=== PATIENT | female | born 1965 | race Caucasian/White ===

== ENCOUNTER 2020-01-13 12:20 | Outpatient (CLI) | payer OTHER, SELFPAY ==
--- NOTE | 2020-01-13 12:32 | MM_ITS ---
WS: [id number] SCREENING DIGITAL MAMMOGRAM WITH CAD HISTORY: SCREEN COMPARISON: 10/21/2018 and 09/19/2017 Bilateral CC and MLO views submitted. Computer aided detection analyzed. Breast composition: There are scattered areas of fibroglandular density. No suspicious masses, microc alcifications or architectural distortion. MM/[id number] IMPRESSION: BI-RADS: 1-Negative FOLLOW UP: 1 Year Follow-up
== END 2020-01-13 12:21 | disposition home or self-care (01) ==
LOC: RADSHAW 12:22
PROVIDERS: PCP Family Medicine; Visit Provider Nurse Practitioner Women's Health
DX: Z12.31 Encounter for screening mammogram for malignant neoplasm of breast (principal)
CPT/HCPCS: 77067

== ENCOUNTER 2021-05-24 15:00 | Outpatient (CLI) | payer OTHER, SELFPAY ==
--- NOTE | 2021-05-24 15:30 | MM_ITS ---
WS: [id number] SCREENING DIGITAL MAMMOGRAM WITH CAD HISTORY: Z12.39 - Encounter for other screening for malignant neoplasm COMPARISON: 01/13/2020 and 10/21/2018 Bilateral CC and MLO views submitted. Computer aided detection analyzed. Breast composition: There are scattered areas of fibroglandular density. No suspicious masses, microc alcifications or architectural distortion. MM/[id number] IMPRESSION: BI-RADS: 1-Negative FOLLOW UP: 1 Year Follow-up
== END 2021-05-24 15:01 | disposition home or self-care (01) ==
LOC: RADSHAW 15:05
PROVIDERS: PCP Family Medicine; Visit Provider Nurse Practitioner Women's Health
DX: Z12.31 Encounter for screening mammogram for malignant neoplasm of breast (principal)
CPT/HCPCS: 77067

== ENCOUNTER 2021-08-11 02:14 | Observation (INO) | payer OTHER, SELFPAY ==
[2021-08-11] VITALS (24 sets, daily range): BP systolic 92–128; BP diastolic 40–91; PULSE 60–90; RESP 14–22; TEMP 36.2–37.6; O2SAT 96–100; BMI 22.2
--- NOTE | 2021-08-11 02:24 | ED_ITS ---
Documented by User: BEVERLEY Denis 08/11/21 02:45 HPI - Abdominal Pain General: Chief Complaint: Abdominal Pain Stated Complaint: abd pain Time Seen by Provider: 08/11/21 02:15 History of Present Illness: HPI narrative: Patient is a 55-year-old female comes to the ED with abdominal pain, nausea and vomiting. Past surgical history of a hysterectomy. Denies any other abdominal surgeries. Symptoms started approximately 3 days ago. She describes having more mild generalized abdominal pain 3 days ago and its progressed and gotten more painful. Abdominal pain is diffuse throughout the abdomen and she denies any localized abdominal pain. Heat pad on her abdomen helped at first, but today did not provide any relief. She rates her abdominal pain a 7 out of 10. She has never had abdominal pain like this before. yesterday patient started developing nausea and vomiting and was only able to keep half a bottle of Sprite down and she had no other food or fluids. She has not had a good BM for several days now. She had small amount of liquid stool today. MD elicited complaint: abdominal pain Pertinent past history: constipation Onset (ago): day(s) (3 days ago) Pain Consistency: constant Location: Diffuse (Throughout abdomen) Severity: moderate Pain scale (0-10): 7 Radiation: none Relieving factors: other (Heat pad) Associated Symptoms: Reports constipation, nausea, poor appetite and vomiting; Denies chills, diarrhea, dysuria, fever(s), hematochezia and hematuria Review of Systems Const: Reports: change in appetite (Decreased appetite); Denies: fever(s), chills or fatigue Eyes: Denies: change in vision or eye discomfort ENMT: Denies: throat pain, odynophagia, nasal discharge or nasal congestion Card: Denies: chest pain, palpitations, edema, swelling of feet/ankles, dyspnea on exertion or orthopnea Resp: Denies: dyspnea, productive cough or non-productive cough GI: Reports: abdominal pain, nausea, vomiting and constipation; Denies: diarrhea or hematochezia : Denies: flank pain, dysuria or hematuria Musc: Denies: neck pain, back pain or extremity swelling Skin/Breast: Denies: rash or new lesions Neuro: Denies: headache(s), numbness in extremities or weakness in extremities PFSH ED PFSH: Medical History No pertinent past medical history neghx:htn,dm,thyroid,dvt/pe Postmenopausal Surgical History History of hysterectomy with bilateral oophorectomy (~06/24/12) Hx of tubal ligation (~04/03/03) Status post hysteroscopy (09/18/11) D&C and Polypectomy- Endometrial polyp with multiple submucosal fibroids. Procedure performed by Dr. Eyad Roque at [facility] in [place], [place] Family History Grandmother Breast cancer Paternal-- dx age 80's Mother Hypertension Father Hypertension Grandfather Stroke Paternal Denies family history of Colon cancer Ovarian cancer Diabetes Heart disease Hypercholesteremia Bleeding disorder Uterine cancer Thyroid disease Physical Exam Const: COMMON NORMALS: no acute distress, patient oriented x3, healthy appearing and alert GENERAL APPEARANCE: cooperative and comfortable HENMT: COMMON NORMALS: normocephalic HEAD & SCALP: normocephalic MOUTH: moist mucous membranes abnormal Details: parched THROAT: posterior oropharynx normal and uvula midline Eye: COMMON NORMALS: Equal, round and reactive pupils present PUPIL: Yes Equal, round and reactive pupils present Neck/C-Spine: COMMON NORMALS: supple GENERAL: Yes normal visual inspection Resp: COMMON NORMALS: normal respiratory effort, No retractions, No use of accessory muscles and clear to auscultation bilaterally AUSCULTATION: clear to auscultation bilaterally Cardio: COMMON NORMALS: regular rate, regular rhythm, S1 normal heart sound present, S2 normal heart sound present, No gallops present (Cardio), No clicks present (Cardio), No murmurs present (Cardio) and Peripheral pulses 2+ throughout RATE: regular rate RHYTHM: regular rhythm HEART SOUNDS: S1 normal heart sound present and S2 normal heart sound present PERIPHERAL PULSES: Peripheral pulses 2+ throughout GI: COMMON NORMALS: Normal to inspection, nondistended, normoactive bowel sounds present, Soft to palpation and no masses PALPATION: Yes Soft to palpation and Yes Tenderness to palpation present (GI) (Generalized tenderness throughout all 4 quadrants-no localized tenderness) Details: LLQ, RLQ, LUQ and RUQ : COMMON NORMALS: Yes no CVA tenderness BLADDER/KIDNEY EXAM: Yes no CVA tenderness Back/Pelvis: COMMON NORMALS: no CVA tenderness Extremity: COMMON NORMALS: normal to inspection and no pedal edema Neuro: COMMON NORMALS: patient oriented x3 SENSORIUM/ORIENTATION: Yes alert GAIT: Yes Normal gait present Skin: GENERAL SKIN EXAM: dry skin Course ED course: I performed the initial history physical exam, ordered labs and imaging on patient. I then transferred care over to Dr. Delgado at the end of my shift at [address] Delgado will be taking over management of patient and discharge. Uvaldo Shields PA-C Vital Signs: Vital signs: Vital Signs Temperature 97.9 F 08/11/21 02:17 Pulse Rate 90 08/11/21 02:17 Respiratory Rate 18 08/11/21 02:58 Blood Pressure 128/77 08/11/21 02:17 Pulse Oximetry 100 08/11/21 02:17 MDM - Abdominal Pain Lab Data: Labs: Lab Results 08/11/21 08/11/21 02:50 02:50 WBC 16.9 10^3/uL H 10 ^3/uL (4.0-10.0) RBC 4.30 10^6/uL 10^6 /uL (4.1-5.3) Hgb 11.3 g/dL L g/dL (11.5-15.3) Hct 35.6 % L % (37.0-47.0) MCV 82.8 fl fl (81-99) MCH 26.3 pg L pg (28.0-34.0) MCHC 31.7 g/dL g/dL (30.0-36.0) RDW 13.2 % % (12.1-15.1) Plt Count 301 10^3/cmm 10^3 /cmm (130-400) MPV 10.9 fL H fL (7.4-10.4) Neut % (Auto) 87.2 % % Lymph % (Auto) 6.4 % % [place] % (Auto) 5.8 % % Eos % (Auto) 0.0 % % Baso % (Auto) 0.3 % % Neut # (Auto) 14.76 10^3/uL H 1 0^3/uL (1.8-7.7) Lymph # (Auto) 1.1 10^3/uL 10^3/ uL (0.8-4.8) [place] # (Auto) 1.0 10^3/uL H 10^ 3/uL (0.2-0.9) Eos # (Auto) 0.0 10^3/uL 10^3/ uL (0.0-0.8) Baso # (Auto) 0.1 10^3/uL 10^3/ uL (0.0-0.1) Nucleated RBC % (a uto) 0 % % Nucleated RBCs # 0.0 /100WBC /100W BC Sodium 139 mmol/L mmol/L (136-145) Potassium 3.7 mmol/L mmol/L (3.5-5.1) Chloride 103 mmol/L mmol/L (98-107) Carbon Dioxide 20 mmol/L L mmol/ L (22-29) Anion Gap 19.7 H (5-19) BUN 11 mg/dL mg/dL (6-20) Creatinine 0.5 mg/dL mg/dL (0.5-0.9) GFR Calculation 127.6 mL/min mL/m in (90-130) Glucose 117 mg/dL H mg/dL (65-115) Calculated Osmolal ity 288 mOsm/kg mOsm/ kg (285-295) Calcium 8.5 mg/dL mg/dL (8.5-10.5) Total Bilirubin 0.5 mg/dL mg/dL (0.15-1.2) AST 11 U/L U/L (0-32) ALT 6 U/L U/L (0-33) Alkaline Phosphata se 44 IU/L IU/L (35-105) Total Protein 7.5 g/dL g/dL (6.6-8.7) Albumin 4.1 g/dL g/dL (3.5-5.2) Globulin 3.4 g/dL g/dL (1.3-4.6) Lipase 33 U/L U/L (13-60) Discharge Plan Discharge Patient Disposition: Admitted As Inpatient Clinical Impression: Acute appendicitis Qualifiers: Acute appendicitis type: unspecified acute appendicitis type Qualified Code(s): K35.80 - Unspecified acute appendicitis Condition: Stable Coding Level of Care Code ED Rn Case Manager for [facility] Fwd Exam Comprehensive Documented by User: Destiny Delgado MD 08/11/21 04:05 HPI - Abdominal Pain General: Chief Complaint: Abdominal Pain Stated Complaint: abd pain Time Seen by Provider: 08/11/21 02:15 PFSH ED PFSH: Medical History No pertinent past medical history neghx:htn,dm,thyroid,dvt/pe Postmenopausal Surgical History History of hysterectomy with bilateral oophorectomy (~06/24/12) Hx of tubal ligation (~04/03/03) Status post hysteroscopy (09/18/11) D&C and Polypectomy- Endometrial polyp with multiple submucosal fibroids. Procedure performed by Dr. Eyad Roque at [facility] in [place], [place] Family History Grandmother Breast cancer Paternal-- dx age 80's Mother Hypertension Father Hypertension Grandfather Stroke Paternal Denies family history of Colon cancer Ovarian cancer Diabetes Heart disease Hypercholesteremia Bleeding disorder Uterine cancer Thyroid disease Course Vital Signs: Vital signs: Vital Signs Temperature 97.9 F 08/11/21 02:17 Pulse Rate 90 08/11/21 02:17 Respiratory Rate 18 08/11/21 02:58 Blood Pressure 128/77 08/11/21 02:17 Pulse Oximetry 100 08/11/21 02:17 MDM - Abdominal Pain MDM Narrative: Medical decision making narrative: Patient presents here with abdominal pain CT shows appendicitis will start patient on IV antibiotics I spoke to surgeon on-call will admit at this time. Lab Data: Labs: Lab Results 08/11/21 08/11/21 02:50 02:50 WBC 16.9 10^3/uL H 10 ^3/uL (4.0-10.0) RBC 4.30 10^6/uL 10^6 /uL (4.1-5.3) Hgb 11.3 g/dL L g/dL (11.5-15.3) Hct 35.6 % L % (37.0-47.0) MCV 82.8 fl fl (81-99) MCH 26.3 pg L pg (28.0-34.0) MCHC 31.7 g/dL g/dL (30.0-36.0) RDW 13.2 % % (12.1-15.1) Plt Count 301 10^3/cmm 10^3 /cmm (130-400) MPV 10.9 fL H fL (7.4-10.4) Neut % (Auto) 87.2 % % Lymph % (Auto) 6.4 % % [place] % (Auto) 5.8 % % Eos % (Auto) 0.0 % % Baso % (Auto) 0.3 % % Neut # (Auto) 14.76 10^3/uL H 1 0^3/uL (1.8-7.7) Lymph # (Auto) 1.1 10^3/uL 10^3/ uL (0.8-4.8) [place] # (Auto) 1.0 10^3/uL H 10^ 3/uL (0.2-0.9) Eos # (Auto) 0.0 10^3/uL 10^3/ uL (0.0-0.8) Baso # (Auto) 0.1 10^3/uL 10^3/ uL (0.0-0.1) Nucleated RBC % (a uto) 0 % % Nucleated RBCs # 0.0 /100WBC /100W BC Sodium 139 mmol/L mmol/L (136-145) Potassium 3.7 mmol/L mmol/L (3.5-5.1) Chloride 103 mmol/L mmol/L (98-107) Carbon Dioxide 20 mmol/L L mmol/ L (22-29) Anion Gap 19.7 H (5-19) BUN 11 mg/dL mg/dL (6-20) Creatinine 0.5 mg/dL mg/dL (0.5-0.9) GFR Calculation 127.6 mL/min mL/m in (90-130) Glucose 117 mg/dL H mg/dL (65-115) Calculated Osmolal ity 288 mOsm/kg mOsm/ kg (285-295) Calcium 8.5 mg/dL mg/dL (8.5-10.5) Total Bilirubin 0.5 mg/dL mg/dL (0.15-1.2) AST 11 U/L U/L (0-32) ALT 6 U/L U/L (0-33) Alkaline Phosphata se 44 IU/L IU/L (35-105) Total Protein 7.5 g/dL g/dL (6.6-8.7) Albumin 4.1 g/dL g/dL (3.5-5.2) Globulin 3.4 g/dL g/dL (1.3-4.6) Lipase 33 U/L U/L (13-60) Imaging Data ^: CT Abd/Pel: Radiologist's impression: [address] [address] [address] Scan Report Signed with Addenda Patient: Sylvie Meadows Unit #: [id number] : 1965 Age/Sex: 55 / F ADM Date: 08/11/21 Loc: ER Room/Bed: Attending Dr: Ordering Provider/Ordering MD: Uvaldo Shields Date of Service: 08/11/21 Procedure(s): CT abdomen pelvis w con* [id number] Accession Number(s): [id number] Report Number: [id number]/CT abdomen pelvis w con* [id number] CRITICAL RESULT: THIS REPORT CONTAINS FINDINGS THAT MAY BE CRITICAL TO PATIENT CARE. The findings were verbally communicated via telephone conference with Dr. Delgado at 3:46 AM RADIO CONTROL CRANE OPERATOR on 08/11/2021. The findings were acknowledged and understood. Addendum Dictated By: Long Feng MD Addendum Signed By: Long Feng MD Signed Date/Time: 08/11/21 0348 Addendum Cosigned By: PROCEDURE INFORMATION: Exam: CT Abdomen And Pelvis With Contrast Exam date and time: 08/11/2021 2:23 AM Age: 55 years old Clinical indication: Nausea and vomiting; Abdominal pain; Localized; Prior surgery; Surgery type: Hysterectomy; Patient HX: Worsening lower abd pain with n/v x 2 days. ; Additional info: Generalized abdominal pain, n/v TECHNIQUE: Imaging protocol: Computed tomography of the abdomen and pelvis with contrast. Radiation optimization: All CT scans at this facility use at least one of these dose optimization techniques: automated exposure control; mA and/or kV adjustment per patient size (includes targeted exams where dose is matched to clinical indication); or iterative reconstruction. Contrast material: OMNI 300; Contrast volume: 95 ml; Contrast route: INTRAVENOUS (IV); COMPARISON: No relevant prior studies available. RADIATION DOSE METRICS: Total DLP (mGy-cm): 1269.42 FINDINGS: Liver: Normal. No mass. Gallbladder and bile ducts: Normal. No calcified stones. No ductal dilation. Pancreas: Normal. No ductal dilation. Spleen: Normal. No splenomegaly. Adrenal glands: Normal. No mass. Kidneys and ureters: Normal. No hydronephrosis. Stomach and bowel: There is mild enhancement of the terminal ileum likely representing a mild reactive ileitis. Appendix: The appendix is abnormally dilated to 17 mm. There are diffuse hazy and strandy opacity seen in the adjacent mesentery, findings compatible with some inflammatory changes and appendicitis. Intraperitoneal space: See Appendix finding. Vasculature: Unremarkable. No abdominal aortic aneurysm. Lymph nodes: Unremarkable. No enlarged lymph nodes. Urinary bladder: Unremarkable as visualized. Reproductive: Status post hysterectomy. Bones/joints: Unremarkable. No acute fracture. Soft tissues: Unremarkable. Other findings: A small volume of fluid is seen within the dependent portion of pelvis. CT/CT abdomen pelvis w con* [id number] IMPRESSION: 1. Abnormally dilated appendix measuring up to 17 mm with adjacent strandy and hazy opacities present, findings compatible with acute appendicitis. 2. Mild enhancement of the terminal ileum likely represents mild reactive ileitis. 3. Small volume of low-attenuation fluid seen in the dependent portion of the pelvis. Dictated By: Long Feng MD Signed By: Long Feng MD Signed Date/Time: 08/11/21 0345 DD/ 2 Discharge Plan Discharge Patient Disposition: Admitted As Inpatient Clinical Impression: Acute appendicitis Qualifiers: Acute appendicitis type: unspecified acute appendicitis type Qualified Code(s): K35.80 - Unspecified acute appendicitis Condition: Stable Coding Level of Care Code ED Rn Case Manager for [facility] Fwd Exam Comprehensive
[2021-08-11] MEDS: sodium chloride 0.9% 1,000 ML 999 ML IV (02:58)
[2021-08-11] MEDS: morphine 4 mg/mL SDV 1 mL IVP (02:58)
[2021-08-11] MEDS: ondansetron 2 mg/ML SDV 2 mL 4 MG IVP ×2 (02:58→11:53)
[2021-08-11] MEDS: iohexol 300 mg/mL 100 mL Btl IV (03:08)
[2021-08-11 03:10] LABS: Basophils # 0.1 10^3/uL (0.0-0.1); Basophils % 0.3 %; Hematocrit 35.6 % (37.0-47.0); Hemoglobin 11.3 g/dL (11.5-15.3); Lymphocytes # 1.1 10^3/uL (0.8-4.8); Lymphocytes % 6.4 %; Mean Corpuscular HGB Conc 31.7 g/dL (30.0-36.0); Mean Corpuscular Hemoglobin 26.3 pg (28.0-34.0); Mean Corpuscular Volume 82.8 fl (81-99); Mean Platelet Volume 10.9 fL (7.4-10.4); Monocytes % 5.8 %; Neutrophils # 14.76 10^3/uL (1.8-7.7); Neutrophils % 87.2 %; Nucleated Red Blood Cells % 0 %; Platelet Count 301 10^3/cmm (130-400); Red Cell Distribution Width 13.2 % (12.1-15.1); White Blood Count 16.9 10^3/uL (4.0-10.0)
[2021-08-11 03:34] LABS: Alanine Aminotransferase 6 U/L (0-33); Albumin Level 4.1 g/dL (3.5-5.2); Alkaline Phosphatase 44 IU/L (35-105); Anion Gap 19.7 (5-19); Aspartate Amino Transferase 11 U/L (0-32); Blood Urea Nitrogen 11 mg/dL (6-20); Calcium 8.5 mg/dL (8.5-10.5); Carbon Dioxide 20 mmol/L (22-29); Chloride 103 mmol/L (98-107); Globulin 3.4 g/dL (1.3-4.6); Glomerular Filtration Rate 127.6 mL/min (90-130); Glucose 117 mg/dL (65-115); Lipase 33 U/L (13-60); Osmolality Calculated 288 mOsm/kg (285-295); Potassium 3.7 mmol/L (3.5-5.1); Sodium 139 mmol/L (136-145); Total Bilirubin 0.5 mg/dL (0.15-1.2); Total Protein 7.5 g/dL (6.6-8.7)
[2021-08-11] MEDS: HYDROmorphone 1 mg/mL INJ 1 mL IVP (04:33)
[2021-08-11] MEDS: piperacillin-tazobactam 3.375 GM in sodium chloride 0.9% (plus) 50 ML IV (04:47)
--- NOTE | 2021-08-11 05:42 | PC.NURSE ---
Surgical staff here to take pt to surgey.
--- NOTE | 2021-08-11 06:40 | ANES.PREANE2 ---
Pre-Anesthetic Assessment Pre-Anesthetic Assessment: Height/Weight: Height 1.68 m Weight 62.596 kg Temp Pulse Resp BP Pulse Ox 98.6 F 78 16 111/53 100 08/11/21 04:54 08/11/21 04:54 08/11/21 04:54 08/11/21 04:54 08/11/21 04:54 Preop Diagnosis: Appendicitis Proposed Procedure: Operation Date: 08/11/21 07:20 Proposed Procedures p Laparoscopic Appendectomy(Not Applicable) - Rohith Hernandez DO Familial anesthetic complications: None Was Beta Khalif taken within 24 hours: N/A Was Clonidine taken within 24 hours: N/A Last intake: Intake Last Liquid Date 08/10/21 Last Liquid Time 19:00 Last Solid Date 08/09/21 Last Solid Time 05:37 Social: Social History: No alcohol and No tobacco Exam: Pre-Anes Outpt Exam: alert, oriented x 3, clear to auscultation bilaterally and regular rate & rhythm Airway: Cervical ROM: WNL MP: 2 Dentition: Full Anesthetic Plan: ASA status: 1 Anesthesia: General Risk of > 500 ml blood loss (7ml/kg in children): No PFSH Anesthesia PFSH: Medical History No pertinent past medical history neghx:htn,dm,thyroid,dvt/pe Postmenopausal Surgical History History of hysterectomy with bilateral oophorectomy (~06/24/12) Hx of tubal ligation (~04/03/03) Status post hysteroscopy (09/18/11) D&C and Polypectomy- Endometrial polyp with multiple submucosal fibroids. Procedure performed by Dr. Eyad Roque at [facility] in [place], [place] Family History Grandmother Breast cancer Paternal-- dx age 80's Mother Hypertension Father Hypertension Grandfather Stroke Paternal Denies family history of Colon cancer Ovarian cancer Diabetes Heart disease Hypercholesteremia Bleeding disorder Uterine cancer Thyroid disease Data Anesthesia CBC & Chem 7: 08/11/21 02:50 08/11/21 02:50 Other Labs: Laboratory Results - last 48 hr 08/11/21 08/11/21 02:50 02:50 WBC 16.9 H RBC 4.30 Hgb 11.3 L Hct 35.6 L MCV 82.8 MCH 26.3 L MCHC 31.7 RDW 13.2 Plt Count 301 MPV 10.9 H Neut % (Auto) 87.2 Lymph % (Auto) 6.4 Bailey % (Auto) 5.8 Eos % (Auto) 0.0 Baso % (Auto) 0.3 Neut # (Auto) 14.76 H Lymph # (Auto) 1.1 Bailey # (Auto) 1.0 H Eos # (Auto) 0.0 Baso # (Auto) 0.1 Nucleated RBC % (auto) 0 Nucleated RBCs # 0.0 Sodium 139 Potassium 3.7 Chloride 103 Carbon Dioxide 20 L Anion Gap 19.7 H BUN 11 Creatinine 0.5 GFR Calculation 127.6 Glucose 117 H Calculated Osmolality 288 Calcium 8.5 Total Bilirubin 0.5 AST 11 ALT 6 Alkaline Phosphatase 44 Total Protein 7.5 Albumin 4.1 Globulin 3.4 Lipase 33 Cardiac Studies: No Data to Display
--- NOTE | 2021-08-11 07:04 | P.HP_ITS ---
Providers/Chief Complaint Admitting Physician: Rohith Hernandez DO Primary Care Provider: Uvaldo Baldwin MD Chief Complaint: abd pain History of Present Illness Sylvie Meadows is a 55 year old female who presented to the hospital with a 2 day history of abdominal pain. She reports that two days ago she began having abdominal pain the localized to the RLQ and radiates to her back. The pain is sharp and constant. Palpation makes the pain worse. Narcotics make the pain bett er. She did have some nausea and emesis. She has not had a BM since the pain started. She reports chills but no fever. Review of Systems General: Reports: 10 or more systems reviewed and unremarkable except in HPI and below Medications/Allergies Home Medications Medication Instructions Recorded Confirmed Last Taken Type estradiol 0.5 mg tablet 0.5 mg PO DAILY #90 tab 05/16/21 05/16/21 Unknown Rx Allergies Allergy/AdvReac Type Severity Reaction Status Date / Time No Known Allergies Allergy Verified 05/16/21 15:26 PFSH Acute PFSH: Medical History No pertinent past medical history neghx:htn,dm,thyroid,dvt/pe Postmenopausal Surgical History History of hysterectomy with bilateral oophorectomy (~06/24/12) Hx of tubal ligation (~04/03/03) Status post hysteroscopy (09/18/11) D&C and Polypectomy- Endometrial polyp with multiple submucosal fibroids. Procedure performed by Dr. Eyad Roque at [facility] in [place], [place] Family History Grandmother Breast cancer Paternal-- dx age 80's Mother Hypertension Father Hypertension Grandfather Stroke Paternal Denies family history of Colon cancer Ovarian cancer Diabetes Heart disease Hypercholesteremia Bleeding disorder Uterine cancer Thyroid disease Social History (Updated 08/11/21 @ 07:09 by Rohith Hernandez DO) Smoking and tobacco status: never smoked Alcohol intake: current Alcohol intake frequency: holidays/special occasions only Substance/Drug Use: never Vitals/I&O/Wt Last Vital Signs Temp 98.3 F 08/11/21 05:55 Pulse 82 08/11/21 05:55 Resp 18 08/11/21 05:55 BP 115/49 08/11/21 05:55 Pulse Ox 98 08/11/21 05:55 Weight last 48 hrs Weight 138 lb Physical Exam Const: COMMON NORMALS: no acute distress, average body habitus and patient oriented x3 HENMT: COMMON NORMALS: normocephalic HEAD & SCALP: normal to inspection Eye: COMMON NORMALS: Equal, round and reactive pupils present and EOMs intact bilaterally Chest: COMMONS NORMALS: normal inspection of the chest and normal palpation of entire chest wall Resp: COMMON NORMALS: normal respiratory effort and No use of accessory muscles Cardio: COMMON NORMALS: no JVD, regular rate and regular rhythm GI: COMMON NORMALS: Soft to palpation; negative for non-tender (tender to palpation in RLQ. No guarding/rebound/masses) Extremity: COMMON NORMALS: normal to inspection and full ROM Neuro: COMMON NORMALS: patient oriented x3 and no sensory deficits noted Psych: COMMON NORMALS: mental status grossly normal, cooperative, normal affect and speech normal Data : 08/11/21 02:50 08/11/21 02:50 A&P Assessment and plan (1) Acute appendicitis: Abx Pain control To OR for laparoscopic appendectomy, possible open The risks and benefits of the procedure, including but not limited to bleeding, infection, damage to surrounding structures, conversion to an open procedure, scar, numbness, pain, were explained to the patient. She is understanding of the risks and wishes to proceed. Status: Acute Qualifiers: Acute appendicitis type: unspecified acute appendicitis type Qualified Code(s): K35.80 - Unspecified acute appendicitis Attestations Medical Necessity Statement*: Patient requires appendectomy Coding Level of Care Code Acute Heel Buffer for [facility] Diagnoses Acute appendicitis K35.80 Acute appendicitis type: unspecified acute appendicitis type
[2021-08-11] MEDS: HYDROmorphone 1 mg/mL INJ 1 mL 0.5 MG IVP ×2 (08:04→11:35)
--- NOTE | 2021-08-11 09:01 | SUR.PHASEI ---
0710 PT CARE ASSUMED BY Radha GONSALEZ RN, PT TO OPS 10 PT AWAKE ALERT STATES COMFORTABLE, CASE TO BE MOVED BACK TO 11 AM, PT WITH CELL PHONE IN HAND, CONTINOUS O2 SAT PT ON RA
--- NOTE | 2021-08-11 11:25 | PM.OP ---
Operative Report Date of procedure: August 11, 2021 Pre-op Diagnosis: Appendicitis Post-op diagnosis: same Procedure Done: Laparoscopic appendectomy Specimens removed/disposition: appendix Surgeon: Rohith Hernandez Anesthesia: General Estimated blood loss (mL): 5 Complications: none apparent Findings: acute appendicitis Condition: stable Disposition: other (home) Brief History: This very pleasant 55-year-old female presented with acute appendicitis. Laparoscopic appendectomy was indicated. The risks and benefits of procedure, including gone to, bleeding, scar, numbness, infection, damage surrounding structures, conversion to an open procedure, were explained to the patient. She is understanding of the risks and wished to proceed. Procedure: Patient was wheeled into the operative room and placed on the OR table in a supine position. Abdomen was inspected prepped and draped in usual sterile fashion. Time-out was performed and all present were in agreement. A 15 blade scalp was used to make a stab incision in the left upper quadrant and intra-abdominal insufflation was achieved using a Veress needle. After localizing the tissue incisions were made and a 12 millimeter trocar was placed into the umbilicus as well as 1 in the right lower quadrant and 1 in the left lower quadrant . The appendix was identified and was inflamed but not perforated. I used the Ligasure to ligate the mesoappendix at the base. I then used 2 PDS endo-loops to snare the base of the appendix. I then used the Ligasure to ligate the appendix distally. The appendix was removed from the abdomen using an Endo-Catch bag through the umbilical incision. I examined the abdomen with laparoscopic up and no further pathology was identified. Hemostasis was noted. I then closed the umbilical site with a Tobin-Silvino and 0 Vicryl suture in a figure of 8 fashion. All ports removed. Skin was washed and dried. Incisions were closed with 4 O Vicryl in a subcuticular interrupted fashion. Skin glue was applied. Patient tolerated the procedure well.
--- NOTE | 2021-08-11 11:34 | P.PCN_ITS ---
PACU note PACU note: VSS, Good respiratory effort, report to ASH HANDLER Post-Anesthesia Exam: awake
--- NOTE | 2021-08-11 11:34 | PM.PACU ---
PACU note PACU note: VSS, Good respiratory effort, report to PRODUCTS MECHANICAL DESIGN ENGINEER Post-Anesthesia Exam: awake
--- NOTE | 2021-08-11 11:43 | PC.CHAP ---
Pastoral Care Encounter/Spiritual Assessment Type of Contact [] Declined cook fish and chips visit [] Patient/Family/Request visit [] Outpatient visit [] Follow-up visit [] Physician referral [] Code/Alert [xx] Routine visit [] Staff referral [] Actively dying [] Patient sleeping [xx] Family support [] [] Out of room [] Palliative care [] [] Receiving care in room [xx] Pre-surgical visit [] Trauma [] Long length of stay [] ICU visit [] Other: Relational/Emotional Strength [xx] Patient feels connected with others/family/visitors/staff [] Distress [] Loneliness/isolation [] Abandonment Spirituality of Patient [xx] Person of Kim [] Attends Religion of their Kim [xx] Believes in Prayer [xx] Reads Bible or Yarsani materials [] There are Spiritual issues to be addressed Hotbed Operator Interventions [xx] Prayer [xx] Active listening [xx] Non-anxious presence [] Spiritual/emotional support [] Crisis/trauma care [] Spiritual counseling [] Bereavement support [] Provided bereavement packet [xx] Provided Bible/devotional materials [] Provided toy/stuffed animal, coloring book to patient or family member [] Provided Communion [] Anointing/[place] [] Salvation [xx] Completed spiritual assessment [] Other: Impact on Illness or Injury [] Angry [] Fearful [] Anxious [] Often cries [] Exhaustion [] Unable to work [] Unable to attend jew [] Unable to walk/stand [] Unable to read [] Unable to drive [] Unable to eat/drink [] Unable to sleep [] Unable to be with family [] Patient intubated [] Other: Summary Patient had been taken to emergency surgery. was in room waiting for her return. We talked and I prayed for patient and spouse. Spouse hoping she will be discharged Rona morning and can spend part of Rona day with whole family. Time spent with patient 5 minutes
--- NOTE | 2021-08-11 12:00 | SUR.PHASEI ---
PT STATES PAIN IS MUCH BETTER 4 SITES TO ABD D/I ABD SOFT VSS. IV PATENT, SEE EARLIER MEDS GIVEN PT STATES NAUSEA IS BETTER WELL SEE MED GIVEN.
[2021-08-11] MEDS: oxyCODONE-APAP 5-325 mg Tablet 1 TAB PO (13:10)
--- NOTE | 2021-08-11 13:19 | PM.DCS ---
Discharge Providers Date of Admission: 08/11/21 03:55 Date of Discharge: August 11, 2021 Attending Provider at Admission: Rohith Hernandez DO Attending Provider at Discharge: Rohith Hernandez DO Primary Care Provider: Uvaldo Baldwin MD Diagnoses at Discharge Discharge Diagnosis (1) Acute appendicitis: Status: Acute Qualifiers: Acute appendicitis type: unspecified acute appendicitis type Qualified Code(s): K35.80 - Unspecified acute appendicitis Reason for Visit Reason for Visit: abd pain Hospital Course Hospital Course 55 year old female patient presented with acute appendicitis. She underwent an uneventful laparoscopic appendectomy on 08/11/2021 and was discharged home postoperatively. Physical Exam Const: COMMON NORMALS: no acute distress and average body habitus Chest: COMMONS NORMALS: normal inspection of the chest and normal palpation of entire chest wall Resp: COMMON NORMALS: normal respiratory effort and No retractions Cardio: COMMON NORMALS: regular rate and regular rhythm RATE: regular rate RHYTHM: regular rhythm GI: OTHER: S, ND, appropriately tender, no g/r/m. Incisions intact Discharge Data Data Completed and Pending: Completed Studies During Hospitalization Category Date Time Status CT abdomen pelvis w con* [id number] Urge nt Cat Scan 08/11/21 02:23 Completed Pending at discharge Category Date Time Status ES surgery / GI i mages Routine Exams 08/11/21 06:41 Taken Urinalysis Stat Lab 08/11/21 02:16 Uncollected Pathology: Surgic al [PTH] Routine Pth 08/11/21 11:31 Ordered Labs from last 24 hours 08/11/21 08/11/21 02:50 02:50 WBC 16.9 H RBC 4.30 Hgb 11.3 L Hct 35.6 L MCV 82.8 MCH 26.3 L MCHC 31.7 RDW 13.2 Plt Count 301 MPV 10.9 H Neut % (Auto) 87.2 Lymph % (Auto) 6.4 [place] % (Auto) 5.8 Eos % (Auto) 0.0 Baso % (Auto) 0.3 Neut # (Auto) 14.76 H Lymph # (Auto) 1.1 [place] # (Auto) 1.0 H Eos # (Auto) 0.0 Baso # (Auto) 0.1 Nucleated RBC % (a uto) 0 Nucleated RBCs # 0.0 Sodium 139 Potassium 3.7 Chloride 103 Carbon Dioxide 20 L Anion Gap 19.7 H BUN 11 Creatinine 0.5 GFR Calculation 127.6 Glucose 117 H Calculated Osmolal ity 288 Calcium 8.5 Total Bilirubin 0.5 AST 11 ALT 6 Alkaline Phosphata se 44 Total Protein 7.5 Albumin 4.1 Globulin 3.4 Lipase 33 Vitals: Last Vital Signs Temp 98.7 F 08/11/21 11:55 Pulse 78 08/11/21 11:55 Resp 18 08/11/21 13:10 BP 108/49 08/11/21 11:55 Pulse Ox 100 08/11/21 11:55 Discharge Plan Discharge Patient Disposition: Home Condition: Stable Prescriptions: New Augmentin 875-125 mg tablet 1 tab PO Q12H 7 Days Qty: 14 RF: 0 hydrocodone-acetaminophen 7.5-325 mg tablet 1 tab PO Q8H Qty: 20 RF: 0 Continued estradiol 0.5 mg tablet 0.5 mg PO DAILY Qty: 90 RF: 3 Discharge Orders: Discharge Order (Routine); Ordered 08/11/21 Ordered By: Rohith Hernandez Referrals: Uvaldo Baldwin MD [Primary Care Provider] - (PLEASE CALL FOR APPOINTMENT ON SATURDAY FOR FOLLOW UP ON SURGERY [phone]) Discharge Diet: Advance as tolerated Discharge Activity: Resume usual activity Patient Instructions: Hydrocodone/Acetaminophen (By mouth) (Vicodin, [place], Lortab), Amoxicillin/Clavulanate Potassium (By mouth) (Augmentin, Augmentin..., Appendicitis (GEN), Laparoscopic Appendectomy (DC), Opioid Safety Activity Restrictions/Additional Instructions: Shower daily. Do not soak incisions under water for 2 weeks. Follow up with general surgery in 2 weeks. Discharge Attestations Time Spent in Discharge Care*: less than 30 min Quality Metrics Clinical Quality Measures During this hospital stay, did patient experience: None Coding Level of Care Code Acute Chg FW DC note Diagnoses Acute appendicitis K35.80 Acute appendicitis type: unspecified acute appendicitis type
== END 2021-08-11 15:30 | disposition home or self-care (01) ==
LOC: ER 04:01 → MEDSURG 04:17
PROVIDERS: Physician Assistant; Admitting Provider Surgery; Emergency Provider Emergency Medicine; PCP Family Medicine; Visit Provider Surgery
PROC: 0DTJ4ZZ Resection of Appendix, Percutaneous Endoscopic Approach (ICD-10-PCS; CPT 44970; principal; 2021-08-11 07:00)
DX: K35.80 Unspecified acute appendicitis (principal)
CPT/HCPCS: 44970; 74177; 80053; 83690; 85025; 88304; 96365; 96374; 96375; 96376; 99285; G0378; J1100; J1170; J2270; J2405; J2543; J2704; J2710; J3010; J3490; J7030; Q9967

== ENCOUNTER 2021-08-22 09:36 | Outpatient (CLI) | payer OTHER, SELFPAY ==
--- NOTE | 2021-08-22 09:47 | CT_ITS ---
WS: [id number] CT ABDOMEN AND PELVIS WITH CONTRAST HISTORY: Abdominal and RIGHT lower quadrant pain. TECHNIQUE: Imaging performed of the abdomen and pelvis with IV contrast. Single phase imaging of the abdomen. Coronal and sagittal reformats are submitted. All CT scans at [facility] use at rhea st one of these dose optimization techniques: automated exposure control; mA and/or kV adjustment per patient size (includes targeted exams where dose is matched to clinical indication); or iterative re construction. IV CONTRAST: Omnipaque 300; 95 mL IV. Oral contrast: Yes. DLP: 1023.32 mGy.cm COMPARISON: 08/11/2021 Lower thorax: Lung bases are clear. Heart is normal size. No hiatal hernia. Liver/biliary system: Normal size with no intrahepatic dilatation. Gallbladder: Normal. No gallstones or wall thickening. No pericholecystic fluid. Pancreas: Normal size pancreas and pancreatic duct. No adjacent inflammation. Spleen: Normal size spleen. No mass or infarct. Adrenal glands: Normal. Right kidney: Normal. Left kidney: Normal. Aorta: Mild atherosclerosis with no aneurysm. Lymphadenopathy: There are small lymph nodes in the RIGHT lower quadrant along the RIGHT psoas muscle . These are subcentimeter but more than expected in number. Free fluid: None. GI tract: Status post appendectomy. No GI tract obstruction. There is a moderate amount of fecal mate rial throughout the colon. In the RIGHT lower quadrant at the surgical site are very small irregular shaped collections. There are at least 3 collections with the largest measuring 2.4 cm in diameter. T here is adjacent stranding in the soft tissue. These are not well formed may represent developing abs cesses versus fat necrosis/infarction. Abdominal wall: There is an area of soft tissue thickening at the umbilicus with a small postoperativ e collection measuring 1.3 cm. Pelvis: No free fluid or adenopathy within the pelvis. Bones: Unremarkable. CT/CT abdomen pelvis w con* [id number] IMPRESSION: 1. In the RIGHT lower quadrant near the recent appendectomy site there are 3 i ll-defined collections with the largest measuring 2.4 cm. There is no central l iquefaction at this time. The berman are mildly enhancing but incomplete. Favor these are small postoperative phlegmonous collections and concerning for develo ping abscesses. Alternative diagnosis are areas of fat necrosis at the surgical site. Correlate with laboratory values. 2. No free fluid or free air. 3. Recent postsurgical changes along the umbilicus.
[2021-08-22] MEDS: iohexol 300 mg/mL 100 mL Btl IV (11:28)
[2021-08-22] MEDS: iohexol 300 mg/mL 50 mL Btl IV (11:28)
== END 2021-08-22 09:37 | disposition home or self-care (01) ==
PROVIDERS: PCP Family Medicine; Visit Provider Family Medicine
DX: R10.31 Right lower quadrant pain (principal)
CPT/HCPCS: 74177

== ENCOUNTER 2022-02-01 05:28 | Day surgery (SDC) | payer OTHER, SELFPAY ==
[2022-01-30 13:30] VITALS: BMI 22.6
[2022-02-01 06:06] VITALS: BP 100/76; PULSE 95; RESP 16; TEMP 36.3; O2SAT 97
[2022-02-01] MEDS: sodium chloride 0.9% 1,000 ML 30 ML IV (06:15)
--- NOTE | 2022-02-01 06:33 | W.PM.OPSFHP ---
Same Day Surgery H&P Indication for Procedure/HPI DATE OF PROCEDURE: February 01, 2022 CHIEF COMPLAINT/INDICATIONFOR SURGICAL PROCEDURE: Screening colonoscopy PREOP DIAGNOSIS: Screening colonoscopy PLANNED PROCEDURE: Operation Date: 02/01/22 07:00 Proposed Procedures p Colonoscopy 80465/z12.11(Not Applicable) - Darwin Callahan MD This is a pleasant 56 years old female patient comes today for screening colonoscopy. Status post laparoscopic appendectomy on back in July 2021. ROS All systems have been reviewed negative except as for the above or per problem list. Medications/Allergies* Allergies/Adverse Reactions Allergy/AdvReac Type Severity Reaction Status Date / Time No Known Allergies Allergy Verified 02/01/22 06:33 Current Medications: Generic Name Dose Route Start Last Admin Trade Name Freq PRN Reason Stop Dose Admin Sodium Chloride 1,000 mls @ 30 mls/hr 02/01/22 06:00 02/01/22 06:15 Sodium Chloride 0.9% IV 30 mls/hr .Q24H GUILLERMO Administration Pertinent History/Comorbid Conditions* Medical History (Updated 10/11/21 @ 16:21 by Darwin Callahan MD) No pertinent past medical history neghx:htn,dm,thyroid,dvt/pe Postmenopausal Postoperative wound infection Surgical History (Updated 05/13/20 @ 15:50 by Amelia Beard APN, KORTNEY) History of hysterectomy with bilateral oophorectomy (~06/24/12) Hx of tubal ligation (~04/03/03) Status post hysteroscopy (09/18/11) D&C and Polypectomy- Endometrial polyp with multiple submucosal fibroids. Procedure performed by Dr. Eyad Roque at [facility] [place] [facility] in [place], [place] Family History (Updated 05/16/21 @ 15:27 by Eri Warren) Breast cancer Grandmother Paternal-- dx age 80's Hypertension Mother Father Stroke Grandfather Paternal Denies family history of Colon cancer Ovarian cancer Diabetes Heart disease Hypercholesteremia Bleeding disorder Uterine cancer Thyroid disease Social History Smoking and tobacco status: never smoked Alcohol intake: current Alcohol intake frequency: holidays/special occasions only History of recent travel: No Pertinent Exam Findings alert, oriented x 3, regular rate & rhythm and procedure specific exam findings (Abdominal examination nontender nondistended soft) Recommendations Surgery/Procedure today (Screening colonoscopy) Coding Level of Care Code Acute Miter Saw Operator for Chg Fwd
--- NOTE | 2022-02-01 06:49 | ANES.PREANE2 ---
Pre-Anesthetic Assessment Height/Weight: Height 1.68 m Weight 63.503 kg Temp Pulse Resp BP Pulse Ox 97.3 F L 95 16 100/76 97 02/01/22 06:06 02/01/22 06:06 02/01/22 06:06 02/01/22 06:06 02/01/22 06:06 Preop Diagnosis: Screening colonoscopy Operation Date: 02/01/22 07:00 Proposed Procedures p Colonoscopy 76312/z12.11(Not Applicable) - Darwin Callahan MD Was Beta Khalif taken within 24 hours: N/A Was Clonidine taken within 24 hours: N/A Last intake: Intake Last Liquid Date 01/31/22 Last Liquid Time 23:30 Last Solid Date 01/30/22 Last Solid Time 17:30 Last Intake: 23:30 Exam alert and oriented x 3 Airway Submandibular: within normal limits Cervical ROM: within normal limits Mallampati: Class II Dentition: full History/ROS No significant history except as noted Pulmonary None reported CV/HEM None reported None reported Hepatic None reported GI None reported Metabolic None reported Musc/skel None reported Neuropsych None reported Anesthetic Plan ASA status: 1 Anesthesia: MAC Risk of > 500 ml blood loss (7ml/kg in children): No Medications/Allergies Home Medications Medication Instructions Recorded Confirmed Last Taken Type estradiol 0.5 mg tablet 0.5 mg PO DAILY #90 tab 05/16/21 02/01/22 01/31/22 Rx Allergies Allergy/AdvReac Type Severity Reaction Status Date / Time No Known Allergies Allergy Verified 02/01/22 06:33 Current Medications Generic Name Dose Route Start Last Admin Trade Name Freq PRN Reason Stop Dose Admin Sodium Chloride 1,000 mls @ 30 mls/hr 02/01/22 06:00 02/01/22 06:15 Sodium Chloride 0.9% IV 30 mls/hr .Q24H GUILLERMO Administration PFSH Anesthesia Medical History No pertinent past medical history neghx:htn,dm,thyroid,dvt/pe Postmenopausal Postoperative wound infection Surgical History History of hysterectomy with bilateral oophorectomy (~06/24/12) Hx of tubal ligation (~08/16/03) Status post hysteroscopy (09/18/11) D&C and Polypectomy- Endometrial polyp with multiple submucosal fibroids. Procedure performed by Dr. Eyad Roque at [facility] in [place], [place] Family History Grandmother Breast cancer Paternal-- dx age 80's Mother Hypertension Father Hypertension Grandfather Stroke Paternal Denies family history of Colon cancer Ovarian cancer Diabetes Heart disease Hypercholesteremia Bleeding disorder Uterine cancer Thyroid disease Social History Smoking and tobacco status: never smoked Alcohol intake: current Alcohol intake frequency: holidays/special occasions only History of recent travel: No Data Anesthesia Cardiac Studies: No Data to Display
[2022-02-01 07:25] VITALS: BP 85/46; PULSE 69; RESP 16; TEMP 36.2; O2SAT 100
[2022-02-01 07:30] VITALS: BP 87/49; PULSE 76; RESP 18; O2SAT 100
[2022-02-01 07:40] VITALS: BP 84/56; PULSE 70; RESP 18; O2SAT 100
--- NOTE | 2022-02-01 07:44 | PC.NURSE ---
BP 84/56. patent sitting up, drinking fluids, color pink, respirations even and nonlabored. spoke with cranberry sorter and Dr Callahan prior to discharge. instructed to give rest of iv fluids and Dr Callahan will come see her prior to discharge.
[2022-02-01 07:50] VITALS: BP 93/59; PULSE 68; RESP 18; O2SAT 100
--- NOTE | 2022-02-01 07:52 | PC.NURSE ---
Dr Callahan at bedside. BP 93/59. Finish iv fluids and can discharge.
[2022-02-01 07:58] VITALS: BP 98/54; PULSE 63; RESP 18; O2SAT 100
--- NOTE | 2022-02-01 16:28 | ANE.PACU2 ---
Inpatient post-anesthesia follow up: Airway intact: Yes Vital signs: Temperature 97.2 F Pulse Rate 63 Respiratory Rate 18 Blood Pressure 98/54 Pulse Oximetry 100 Oxygen Delivery Me thod Room Air Oxygen Flow Rate Fraction of Inspir ed Oxygen Hydration adequate: Yes Nausea and vomiting: No Pain level: 1 Mental status: Baseline
== END 2022-02-01 08:08 | disposition home or self-care (01) ==
PROVIDERS: PCP Family Medicine; Visit Provider Surgery
PROC: 0DJD8ZZ Inspection of Lower Intestinal Tract, Via Natural or Artificial Opening Endoscopic (ICD-10-PCS; CPT 45378; principal; 2022-02-01 07:00)
DX: Z12.11 Encounter for screening for malignant neoplasm of colon (principal); Q27.30 Arteriovenous malformation, site unspecified
CPT/HCPCS: 45380; 88305; 88342; J2704; J7030

== ENCOUNTER 2022-06-29 09:41 | Outpatient (CLI) | payer OTHER, SELFPAY ==
--- NOTE | 2022-06-29 09:48 | MM_ITS ---
WS: [id number] BILATERAL SCREENING DIGITAL TOMOSYNTHESIS MAMMOGRAM WITH CAD HISTORY: SCREENING COMPARISON: 05/24/2021 and 01/13/2020 Bilateral CC and MLO views with tomosynthesis and synthetic mammography submitted. Computer aided det ection analyzed. Breast composition: There are scattered areas of fibroglandular density. No suspicious masses, microc alcifications or architectural distortion. MM/[place] [id number] IMPRESSION: BI-RADS: 1-Negative FOLLOW UP: 1 Year Follow-up
== END 2022-06-29 09:42 | disposition home or self-care (01) ==
LOC: RAD 09:42
PROVIDERS: PCP Family Medicine; Visit Provider Family Medicine
DX: Z12.31 Encounter for screening mammogram for malignant neoplasm of breast (principal)
CPT/HCPCS: 77063; 77067

== ENCOUNTER 2024-01-31 11:14 | Outpatient (CLI) | payer OTHER, SELFPAY ==
--- NOTE | 2024-01-31 11:17 | MM_ITS ---
WS: [id number] BILATERAL 3D TOMOSYNTHESIS DIGITAL SCREENING MAMMOGRAPHY WITH CAD CLINICAL INFORMATION: SCREENING HISTORY: Screening mammogram. No current complaints. COMPARISON: 06/29/2022 TECHNIQUE: Bilateral CC and MLO views. FINDINGS: Scattered fibroglandular densities bilaterally. No suspicious focal mass, asymmetry, calcifications, or architectural distortion. No evidence of malignancy. MM/[place] [id number] IMPRESSION: BI-RADS: 1-Negative FOLLOW UP: 1 Year Follow-up Recommend return to annual screening mammography.
== END 2024-01-31 11:15 | disposition home or self-care (01) ==
LOC: RAD 11:15
PROVIDERS: PCP Family Medicine; Visit Provider Family Medicine
DX: Z12.31 Encounter for screening mammogram for malignant neoplasm of breast (principal); R92.323 Mammographic fibroglandular density, bilateral breasts
CPT/HCPCS: 77063; 77067

== ENCOUNTER 2025-02-03 09:00 | Outpatient (CLI) | payer BC, SELFPAY ==
--- NOTE | 2025-02-03 09:08 | MM_ITS ---
WS: [id number] BILATERAL SCREENING DIGITAL TOMOSYNTHESIS MAMMOGRAM WITH CAD HISTORY: SCREENING COMPARISON: 01/31/2024, 06/29/2022 Bilateral CC and MLO views with tomosynthesis and synthetic mammography submitted. Computer aided detection analyzed. Breast composition: There are scattered areas of fibroglandular density. No suspicious masses, microcalcifications or architectural distortion. MM/MM scr BI tomosynthesis [id number] IMPRESSION: BI-RADS: 2 - Benign. FOLLOW UP: 1 Year Follow-up
== END 2025-02-03 09:01 | disposition home or self-care (01) ==
PROVIDERS: PCP Family Medicine; Visit Provider Family Medicine
DX: Z12.31 Encounter for screening mammogram for malignant neoplasm of breast (principal)
CPT/HCPCS: 77063; 77067

== ENCOUNTER 2025-04-19 06:30 | Outpatient (RCR) | payer BC, SELFPAY | END 2025-05-18 23:59 | disposition home or self-care (01) | LOC: SPT 06:30 | PROVIDERS: Visit Provider Specialist | DX: R25.0 Abnormal head movements (principal) | CPT/HCPCS: 97161 ==

== ENCOUNTER → 2025-07-26 06:59 | Outpatient (BNVA) | payer BC, SELFPAY | PROVIDERS: PCP Family Medicine; Visit Provider Family Medicine | DX: Z00.00 Encounter for general adult medical examination without abnormal findings (principal); Z51.81 Encounter for therapeutic drug level monitoring; Z13.6 Encounter for screening for cardiovascular disorders; E55.9 Vitamin D deficiency, unspecified | CPT/HCPCS: 80053; 80061; 82306; 85025 ==

== ENCOUNTER → 2025-08-10 08:48 | Outpatient (BNVA) | payer BC, SELFPAY | PROVIDERS: PCP Family Medicine; Visit Provider Family Medicine | DX: Z12.11 Encounter for screening for malignant neoplasm of colon (principal) | CPT/HCPCS: 82270 ==